=== PATIENT | female | born 1980 | race American Indian/Alaskan Native ===

== ENCOUNTER 2017-10-25 17:53 | Emergency (ER) | payer SELFPAY ==
[2017-10-25 17:59] VITALS: BMI 31.8
[2017-10-25 18:01] VITALS: RESP 18; TEMP 98.3
[2017-10-25 19:25] LABS: BASO # 0.1 K/uL (0.0-0.2); EOS # 0.1 K/uL (0.0-0.7); EOS % 2.2 % (0.0-4.0); HEMOGLOBIN 9.7 g/dL (11.0-16.0); LYMPH # 2.5 K/uL (1.0-4.3); LYMPH % 43.4 % (20.0-40.0); MEAN CELL VOLUME 79.1 fL (81.0-99.0); MEAN CORPUSCULAR HEMOGLOBIN 25.4 pg (27.0-31.0); MEAN CORPUSCULAR HGB CONC 32.1 g/dL (33.0-37.0); MEAN PLATELET VOLUME 8.8 fL (7.2-11.7); MONO # 0.5 K/uL (0.0-0.8); MONO % 7.7 % (0.0-10.0); NEUT # 2.7 K/uL (1.8-7.0); NEUT % 45.7 % (50.0-75.0); NRBC % 0.1 % (0.0-2.0); RBC 3.82 Mil/uL (3.80-5.20); RED CELL DISTRIBUTION WIDTH 16.8 % (11.5-14.5); WHITE BLOOD COUNT 5.9 K/uL (4.8-10.8)
[2017-10-25 19:32] LABS: INR 1.1; PROTHROMBIN TIME 11.7 SECONDS (9.7-12.2)
[2017-10-25 19:36] LABS: ALB/GLOB RATIO 1.1 (1.0-2.1); ALBUMIN 3.8 g/dL (3.5-5.0); ALT/SGPT 18 U/L (9-52); AST/SGOT 19 U/L (14-36); BLOOD UREA NITROGEN 9 mg/dL (7-17); CALCIUM 8.8 mg/dl (8.6-10.4); GFR NON-AFRICAN AMERICAN > 60
--- NOTE | 2017-10-25 19:37 | C.PDOC ---
History Of Present Illness The patient presents to the ED for evaluation of bilateral leg swelling which has been worsening for one week. Patient notes swelling first began on his left leg and has now progressed to both legs. Patient's job requires her to be on her feet for 12-14 hours. She denies fever, chills, shortness of breath. Time Seen by Provider: 10/25/17 19:35 Chief Complaint (Nursing): Lower Extremity Problem/Injury History Per: Patient History/Exam Limitations: no limitations Onset/Duration Of Symptoms: Other (one week ) Current Symptoms Are (Timing): Worse Severity: Mild Pain Scale Rating Of: 2 Recent travel outside of the [place]: No Additional History Per: Patient Past Medical History Reviewed: Historical Data, Nursing Documentation, Vital Signs Vital Signs: Last Vital Signs Temp 98.3 F 10/25/17 18:12 Pulse 78 10/25/17 21:12 Resp 18 10/25/17 21:12 BP 132/76 10/25/17 21:12 Pulse Ox 98 10/25/17 21:12 - Medical History PMH: No Chronic Diseases Surgical History: No Surg Hx Family History: States: No Known Family Hx - Social History Hx Alcohol Use: Yes Hx Substance Use: No - Immunization History Hx Tetanus Toxoid Vaccination: No Hx Influenza Vaccination: No Hx Pneumococcal Vaccination: No Review Of Systems Constitutional: Negative for: Fever, Chills Cardiovascular: Negative for: Chest Pain, Palpitations Respiratory: Negative for: Cough, Shortness of Breath Gastrointestinal: Negative for: Nausea, Vomiting, Abdominal Pain Musculoskeletal: Positive for: Leg Pain (with swelling, bilaterally ) Skin: Negative for: Rash, Lesions, Jaundice, Bruising ED Course And Treatment - Laboratory Results Result Diagrams: 10/25/17 19:21 10/25/17 19:21 ECG: Interpreted By Me, Viewed By Me ECG Rhythm: Sinus Rhythm (71), R BBB, Nonspecific Changes O2 Sat by Pulse Oximetry: 100 (on RA) Pulse Ox Interpretation: Normal - Radiology CXR: Interpreted by Me, Viewed By Me CXR Interpretation: No: Infiltrates, Fracture, Pnemothorax Reevaluation Time: 20:43 Reassessment Condition: Improved Disposition Counseled Patient/Family Regarding: Studies Performed, Diagnosis, Need For Followup - Disposition Referrals: [facility] [Outside] [facility] [Outside] Disposition: HOME/ ROUTINE Disposition Time: 19:45 Condition: FAIR Instructions: Dependent Edema (DC) Forms: [employer] ([place]) - Clinical Impression Clinical Impression: Dependent edema - Scribe Statement The provider has reviewed the documentation as recorded by the Scribe (Nadine Pierson) Provider Attestation: All medical record entries made by the Scribe were at my direction and personally dictated by me. I have reviewed the chart and agree that the record accurately reflects my personal performance of the history, physical exam, medical decision making, and the department course for this patient. I have also personally directed, reviewed, and agree with the discharge instructions and disposition.
[2017-10-25 21:13] VITALS: BP 132/76; PULSE 78
[2017-10-25 21:22] VITALS: O2SAT 100
--- NOTE | 2017-10-26 09:19 | RAD ---
Date of service: 10/25/2017 HISTORY: leg edema COMPARISON: No prior. TECHNIQUE: Chest PA and lateral FINDINGS: LUNGS: No active pulmonary disease. PLEURA: No significant pleural effusion identified. No pneumothorax apparent. CARDIOVASCULAR: Normal. OSSEOUS STRUCTURES: No significant abnormalities. VISUALIZED UPPER ABDOMEN: Normal. OTHER FINDINGS: None. IMPRESSION: No acute cardiopulmonary disease appreciated.
--- NOTE | 2017-10-28 16:51 | CARD ---
APPROVED REPORT Date of service: 10/25/2017 EKG Measurement Heart [id number] <Conclusion> Sinus rhythm with occasional ventricular-paced complexes Right bundle branch block Abnormal ECG
== END 2017-10-25 21:15 | disposition home or self-care (01) ==
LOC: C.ER 17:53 → MERGE 17:53 → C.ER 21:15
DX: R60.0 Localized edema (principal)